=== PATIENT | female | born 1985 | race Caucasian/White ===

== ENCOUNTER 2020-11-27 11:25 | Outpatient (CLI) | payer SELFPAY ==
[2020-11-27 11:39] VITALS: BP 117/81; PULSE 92; TEMP 36.7
[2020-11-27 11:50] VITALS: BMI 31.4
[2020-11-27 11:52] VITALS: BP 117/81; PULSE 92; TEMP 36.7; O2SAT 97
--- NOTE | 2020-12-22 14:15 | PCM.HPOB.BLA ---
History and Physical Date of Admission: 11/27/20 EGA 36.5 wks presenting c/o left flank pain has a history of kidney stones. FM +, no LOF, no bleeding. Patient has no acute urinary symptoms Vital signs per chart are stable, NST was reactive without significant contractions No pelvic done as not indicated Assessment: Left flank pain Incidental 36.5 week - mother and baby stable Plan: to ER for flank evaluation
== END 2020-11-27 12:40 | disposition home or self-care (01) ==
LOC: WPOUT 11:33 → WP 11:33
PROVIDERS: PCP Physician Assistant; Visit Provider Obstetrics & Gynecology Gynecology
DX: O26.893 Other specified pregnancy related conditions, third trimester (principal); R10.9 Unspecified abdominal pain; Z3A.36 36 weeks gestation of pregnancy
CPT/HCPCS: 59050; 99218; G0378

== ENCOUNTER 2020-11-27 12:50 | Emergency (ER) | payer OTHER, SELFPAY ==
[2020-11-27 11:50] VITALS: BMI 31.4
[2020-11-27 12:52] VITALS: BP 129/82; PULSE 94; RESP 16; TEMP 36.2; O2SAT 93; BMI 31.4
[2020-11-27 13:43] LABS: Mucous, Urine 0 SEEN /hpf (<or=2+); Squamous Epithelial Cells - UA 0 SEEN /hpf (5-10)
[2020-11-27 13:50] LABS: Color, Urine Yellow (Yellow); Glucose, Dipstick Normal (Normal); Ketone-Dipstick 50 mg/dl (Negative); Leukocyte Esterase-Dipstick 500 /ul (Negative); Nitrite-Dipstick Negative (Negative); Occult Blood-Urine Negative /ul (Negative); Protein-Dipstick 15 mg/dl (Negative); Specific Gravity, Urine 1.015 (1.002-1.030); Urine Bilirubin Dipstick Negative (Negative); Urine Clarity Clear (Clear); Urine Urobilinogen Normal (Normal)
[2020-11-27 13:59] LABS: Bacteria 1+ /hpf (None Seen); Red Blood Cells-Urine 0-5 SEEN /hpf (0-5); White Blood Cells 10-25 SEEN /hpf (0-5)
--- NOTE | 2020-11-27 13:59 | ED.VISSUMM ---
- ER Visit Summary Date of Service: 11/27/20 Chief Complaint: Left flank pain History of Present Illness: The patient is a [address] Gregory. She is a G6, P5 at 36 weeks of and does not have an OB. She is a amusement equipment operator. She complains of left p flank pain that began 4 days ago. It is a sharp pain is 10 of 10 worsened to a 10 currently. Is worsened by nothing including movement. Is relieved by Tylenol PM and ibuprofen as well as a hot water bottle. She had nausea without vomiting. No diarrhea. Last bowel movement was 2 days ago. Typically she goes 3 times a day. She denies any dysuria or frequency. Patient denies any cramping. She denies being in labor. She states that her water has not broken. She denies any vaginal bleeding or discharge. She denies any fever or chills. Physical Examination: Vitals: Stable. Afebrile. General: Well-nourished and well-developed. Head: Normocephalic atraumatic. Neck: Supple, no lymphadenopathy. No JVD. Nontender. Cardiovascular: Regular rate and rhythm. No murmurs. Respiratory: No respiratory distress. Clear to auscultation bilaterally. Gravid uterus. Abdominal: Soft, nontender, nondistended, normal bowel sounds. No guarding, rebound, or peritoneal signs. Back: Mild left CVA tenderness. Extremities: Nontender, no edema. Skin: Normal color, no rash. Neurologic: Alert and oriented ?3. Cranial nerves II through XII are intact. Normal strength and sensation. Psych: Normal affect. Test Results: Urine shows leukocytes, ketones, 10-25 white blood cells, and 1+ bacteria. Emergency Department Course and Treatment: Patient refused pain or nausea medications. She is resting comfortably. Had a prolonged discussion the patient and she has refused a CT. She was seen on OB prior to coming to the emergency department and had a good heart tracing. This was not repeated in the emergency department. She was given Keflex p.o. Treatment Plan: Patient be discharged on Keflex. Instructed to follow-up with her primary care physician in 1 week if not improving. Return to the emergency department for any worsening symptoms. Disposition: To home in improved and stable condition. Impression: 1. Your trimester . 2. UTI. This note was generated with Dragon dictation software. It may contain incorrect words, spelling, and punctuation that were not noted in review of the chart prior to signing ED Disposition - Plan for ED Patient: Instructions: ED Pyelonephritis, Female (Adult) Prescriptions: Cephalexin [Keflex] 500 mg PO Q12 #14 capsule Referrals: Salvador Gregory, [Primary Care Provider] - 1 Week if not improving
[2020-11-27] MEDS: Cephalexin 250 MG Capsule 500 MG PO (14:10)
[2020-11-27 14:11] VITALS: BP 124/87; PULSE 88; RESP 15; O2SAT 96
[2020-11-27 14:16] VITALS: BP 124/87; PULSE 92; RESP 15; O2SAT 98
== END 2020-11-27 14:24 | disposition home or self-care (01) ==
PROVIDERS: Emergency Provider Emergency Medicine; PCP Physician Assistant
DX: O23.43 Unspecified infection of urinary tract in pregnancy, third trimester (principal); Z3A.36 36 weeks gestation of pregnancy
CPT/HCPCS: 81001; 87086; 87088; 99283